=== PATIENT | male | born 1985 | race Caucasian/White ===

== ENCOUNTER 2018-08-31 22:05 | Observation (INO) | payer OTHER ==
[2018-08-31 22:41] LABS: Absolute Lymphocytes (CBC) 4.1 K/uL (0.7-4.9); Absolute Neutrophil 4.1 K/uL (1.8-8.0); Basophils % 0.7 % (0-1.3); Eosinophils % 2.3 % (0-4.4); Hematocrit 46.7 % (39.6-49.0); Lymphocytes % 43.3 % (15.3-44.8); MPV 10.6 fL (7.6-11.3); Monocytes % 10.4 % (3.3-12.3); RBC Red Blood Cell Count 5.16 M/uL (4.33-5.43)
[2018-08-31 22:45] LABS: Protime INR 0.99
[2018-08-31 22:58] LABS: Potassium 3.7 mmol/L (3.5-5.1)
--- NOTE | 2018-08-31 23:46 | ER ---
Nurse's Notes [facility] Name: Beltran Pena Age: 33 yrs Sex: Male : 1985 Arrival Date: 08/31/2018 Time: 22:19 Bed 6 Private MD: Diagnosis: Paresthesia of skin Presentation: 08/31 22:30 Presenting complaint: Patient states: Numbness to left side of face and tingling to lp1 left arm; Began at 2100 tonight; steady gait noted, denies any weakness. Transition of care: patient was not received from another setting of care. Onset of symptoms was August 31, 2018 at 21:00. Risk Assessment: Do you want to hurt yourself or someone else? Patient reports no desire to harm self or others. Initial Sepsis Screen: Does the patient meet any 2 criteria? No. Patient's initial sepsis screen is negative. Does the patient have a suspected source of infection? No. Patient's initial sepsis screen is negative. Care prior to arrival: None. 22:30 Method Of Arrival: Wheelchair lp1 22:30 Acuity: ANGELICA 2 lp1 22:36 No acute neurological deficit is noted. Pre-hospital glucose is not applicable to this lp1 patient. Triage Assessment: 22:25 The onset of the patients symptoms was August 31, 2018 at 21:00. General: Appears in ed1 no apparent distress. Behavior is calm, cooperative. Stroke Activation: Symptom onset < 3 hours Physician: Stroke Attending; Name: ; Notified At: ; Arrived At: Physician: Chief Stroke Resident; Name: ; Notified At: ; Arrived At: Physician: Stroke Resident; Name: ; Notified At: ; Arrived At: Physician: ED Attending; Name: Dr. Newton; Notified At: 22:26; Arrived At: Physician: ED Resident; Name: ; Notified At: ; Arrived At: Historical: - Allergies: 22:33 No Known Allergies; lp1 - Home Meds: 22:33 None [Active]; lp1 - PMHx: 22:33 None; lp1 - PSHx: 22:33 None; lp1 - Immunization history:: Adult Immunizations up to date. - Social history:: Smoking status: Patient/guardian denies using tobacco. - Ebola Screening: : No symptoms or risks identified at this time. Screenin:33 Abuse screen: Denies threats or abuse. Denies injuries from another. Nutritional lp1 screening: No deficits noted. Tuberculosis screening: No symptoms or risk factors identified. Fall Risk None identified. Assessment: 22:45 Patient has been NPO before screening. The patient is alert, and able to follow ed1 commands. The patient does not exhibit slurred or garbled speech. The patient is not exhibiting difficulty speaking. The patient does not exhibit difficulty understanding words. The patient is able to swallow own secretions with no drooling or need for suction. Patient tolerated one teaspoon of water. No drooling, immediate coughing, gurgling, or clearing of the throat was noted. The patient tolerated 90mL of water. No drooling, immediate coughing, gurgling, or clearing of the throat was noted. The patient passed the bedside swallow screening. Oral medications may be given as ordered. Contact Physician for further diet orders. Provider notified of bedside swallow screening results: Tip Newton MD. 22:58 General: Appears in no apparent distress. Behavior is calm, cooperative. Pain: Denies ed1 pain. Neuro: Level of Consciousness is awake, alert, obeys commands, Oriented to person, place, time, situation, Park Landscape Architect are equal bilaterally Moves all extremities. Full function Gait is steady, Speech is normal, Facial symmetry appears normal, Pupils are PERRLA, Intact Tingling in left jaw Numbness in left jaw Pt states numbness and tingling but sensation is equal bilaterally. Reports numbness in left jaw since 2100 Denies weakness blurred vision dizziness, difficulty swallowing, paresthesias headache photophobia diplopia. Cardiovascular: Denies chest pain, Heart tones S1 S2 present. Respiratory: Airway is patent Respiratory effort is even, unlabored, Respiratory pattern is regular, symmetrical, Breath sounds are clear bilaterally. GI: No signs and/or symptoms were reported involving the gastrointestinal system. : No signs and/or symptoms were reported regarding the genitourinary system. EENT: Oral mucosa is moist. 22:58 Derm: Skin is intact, is healthy with good turgor, Skin is dry, Skin is normal, Skin ed1 temperature is warm. Musculoskeletal: Circulation, motion, and sensation intact. Capillary refill < 3 seconds, in bilateral fingers. Range of motion: intact in all extremities. 23:58 Reassessment: Patient appears in no apparent distress at this time. No changes from ed1 previously documented assessment. Patient and/or family updated on plan of care and expected duration. Pain level reassessed. Patient is alert, oriented x 3, equal unlabored respirations, skin warm/dry/pink. Pt reports the tingling is remaining the same Patient denies pain at this time. 09/01 00:50 Reassessment: Patient appears in no apparent distress at this time. No changes from ed1 previously documented assessment. Patient and/or family updated on plan of care and expected duration. Pain level reassessed. Patient is alert, oriented x 3, equal unlabored respirations, skin warm/dry/pink. Patient denies pain at this time. Patient states symptoms have not improved. Neuro: Level of Consciousness is awake, alert, obeys commands, Oriented to person, place, time, situation, Park Landscape Architect are equal bilaterally Moves all extremities. Full function Gait is steady, Speech is normal, Facial symmetry appears normal, Pupils are PERRLA, Tingling in left jaw. 01:45 T-PA (Activase) Screening: Contraindications: Other: MD discretion. ed1 Vital Signs: 08/31 22:31 BP 144 / 85; Pulse 86; Resp 18; Temp 98.4(O); Pulse Ox 98% on R/A; Weight 122.47 kg; lp1 Height 5 ft. 11 in. (180.34 cm); Pain 0/10; 22:58 BP 134 / 85; Pulse 91; Resp 18; Pulse Ox 97% on R/A; Pain 0/10; ed1 23:58 BP 123 / 74; Pulse 71; Resp 18; Pulse Ox 97% on R/A; Pain 0/10; ed1 09/01 00:50 BP 126 / 71; Pulse 76; Resp 17; Temp 97.2(O); Pulse Ox 99% on R/A; Pain 0/10; ed1 08/31 22:31 Body Mass Index 37.66 (122.47 kg, 180.34 cm) lp1 NIH Stroke Scale Scores: 08/31 22:25 NIHSS Score: 0 ed1 23:40 NIHSS Score: 1 ED Course: 22:19 Patient arrived in ED. ed1 22:20 Tip Newton MD is Attending Physician. 22:28 Inserted saline lock: 20 gauge in right antecubital area, using aseptic technique. ed1 Blood collected. By Ailin Lyles RN. 22:[address] stretcher. lp1 22:30 EKG done, by ED staff, reviewed by Tip Newton MD. lp1 22:31 Triage completed. lp1 22:32 Arm band placed on. lp1 22:33 Patient has correct armband on for positive identification. Placed in gown. Bed in low lp1 position. gambling monitor on. Pulse ox on. NIBP on. 22:34 Angelina Sherwood RN is Primary Nurse. ed1 22:42 X-ray(s) taken. ed1 22:44 CT Stroke Brain w/o Contrast In Process Unspecified. EDMS 22:53 Stroke CXR 1 View In Process Unspecified. EDMS 23:45 Héctor Whittaker MD is Hospitalizing Provider. gs 02 00:50 No provider procedures requiring assistance completed. Patient admitted, IV remains in ed1 place. intact, No redness/swelling at site. 07:02 Primary Nurse role handed off by Angelina Sherwood RN ed1 07:29 Patient moved to MRI via wheelchair. lc 08:06 Patient moved back from MRI. lc Administered Medications: No medications were administered Point of Care Testing: Blood Glucose: 0204 22:26 Blood Glucose: 107 mg/dL; lp1 Ranges: Outcome: 23:46 Decision to Hospitalize by Provider. 02 00:50 Admitted to ER Hold. [facility]. ed1 Condition: stable Discharge instructions given to patient, Instructed on the need for admit, Demonstrated understanding of instructions. 08:39 Patient left the ED. hb NIH Stroke Scale - NIH Stroke Score Date: 08/31/2018 Time: 22:25 Total Score = 0 1a. Level of Consciousness (LOC) - 0(Alert) 1b. Level of Consciousness (LOC) (Year \T\ Age) - 0(Both) 1c. LOC Commands (Open \T\ Closes Eyes/Mine Equipment Design Engineer) - 0(Both) 2. Best Gaze (Lateral Gaze Paresis) - 0(Normal) 3. Visual Field Loss - 0(No visual loss) 4. Facial Palsy - 0(Normal) 5a. Left Arm: Motor (10-second hold) - 0(No drift) 5b. Right Arm: Motor (10-second hold) - 0(No drift) 6a. Left Leg: Motor (5-second hold - always test supine) - 0(No drift) 6b. Right Leg: Motor (5-second hold - always test supine) - 0(No drift) 7. Limb Ataxia (finger/nose \T\ heel/august - test with eyes open) - 0(Absent) 8. Sensory Loss (pinprick arms/legs/face) - 0(Normal) 9. Best Language: Aphasia (description/naming/reading) - 0(No aphasia) 10. Dysarthria (speech clarity - read or repeat words) - 0(Normal) 11. Extinction and Inattention (visual/tactile/auditory/spatial/personal) - 0(No abnormality) Initials: ed1 NIH Stroke Scale - NIH Stroke Score Date: 08/31/2018 Time: 23:40 Total Score = 1 1a. Level of Consciousness (LOC) - 0(Alert) 1b. Level of Consciousness (LOC) (Year \T\ Age) - 0(Both) 1c. LOC Commands (Open \T\ Closes Eyes/Mine Equipment Design Engineer) - 0(Both) 2. Best Gaze (Lateral Gaze Paresis) - 0(Normal) 3. Visual Field Loss - 0(No visual loss) 4. Facial Palsy - 0(Normal) 5a. Left Arm: Motor (10-second hold) - 0(No drift) 5b. Right Arm: Motor (10-second hold) - 0(No drift) 6a. Left Leg: Motor (5-second hold - always test supine) - 0(No drift) 6b. Right Leg: Motor (5-second hold - always test supine) - 0(No drift) 7. Limb Ataxia (finger/nose \T\ heel/august - test with eyes open) - 0(Absent) 8. Sensory Loss (pinprick arms/legs/face) - 1(Mild to moderate loss) 9. Best Language: Aphasia (description/naming/reading) - 0(No aphasia) 10. Dysarthria (speech clarity - read or repeat words) - 0(Normal) 11. Extinction and Inattention (visual/tactile/auditory/spatial/personal) - 0(No abnormality) Initials: gs Signatures: Dispatcher [employer] EDMS Pura Arias Erika RN RN ed1 Ramonita Singh RN RN lp1 Nichelle Granado RN RN Tip Newton MD MD gs Corrections: (The following items were deleted from the chart) 08/31 22:57 22:26 Inserted saline lock: 20 gauge in right antecubital area, using aseptic ed1 technique. Blood collected. By Ailin Lyles RN lp1
--- NOTE | 2018-08-31 23:47 | EDPHYS ---
Physician Documentation [facility] Name: Beltran Pena Age: 33 yrs Sex: Male : 1985 Arrival Date: 08/31/2018 Time: 22:19 Bed 6 Private MD: ED Physician Tip Newton HPI: 08/31 23:40 This 33 yrs old Male presents to ER via Wheelchair with complaints of gs numbness of face. 23:40 The patient's problem is reported as paresthesias, in left side of face. Onset: The gs symptoms/episode began/occurred at 21:00. Duration: The episode is continuous. Context: occurred at home, occurred while the patient was lying down. The symptoms are alleviated by nothing. The symptoms are aggravated by nothing. Associated signs and symptoms: Pertinent negatives: agitation, ataxia, combativeness, confusion, headache, palpitations, shortness of breath, weakness. Severity of symptoms: At their worst the symptoms were mild in the emergency department the symptoms are unchanged. The patient has not experienced similar symptoms in the past. Historical: - Allergies: 22:33 No Known Allergies; lp1 - Home Meds: 22:33 None [Active]; lp1 - PMHx: 22:33 None; lp1 - PSHx: 22:33 None; lp1 - Immunization history:: Adult Immunizations up to date. - Social history:: Smoking status: Patient/guardian denies using tobacco. - Ebola Screening: : No symptoms or risks identified at this time. ROS: 23:40 All other systems are negative. gs Exam: 23:40 Head/Face: Normocephalic, atraumatic. Eyes: Pupils equal round and reactive to light, gs extra-ocular motions intact. Lids and lashes normal. Conjunctiva and sclera are non-icteric and not injected. Cornea within normal limits. Periorbital areas with no swelling, redness, or edema. ENT: Nares patent. No nasal discharge, no septal abnormalities noted. Tympanic membranes are normal and external auditory canals are clear. Oropharynx with no redness, swelling, or masses, exudates, or evidence of obstruction, uvula midline. Mucous membranes moist. Neck: Trachea midline, no thyromegaly or masses palpated, and no cervical lymphadenopathy. Supple, full range of motion without nuchal rigidity, or vertebral point tenderness. No Meningismus. Chest/axilla: Normal chest wall appearance and motion. Nontender with no deformity. No lesions are appreciated. Cardiovascular: Regular rate and rhythm with a normal S1 and S2. No gallops, murmurs, or rubs. Normal PMI, no JVD. No pulse deficits. Respiratory: Lungs have equal breath sounds bilaterally, clear to auscultation and percussion. No rales, rhonchi or wheezes noted. No increased work of breathing, no retractions or nasal flaring. Abdomen/GI: Soft, non-tender, with normal bowel sounds. No distension or tympany. No guarding or rebound. No evidence of tenderness throughout. Back: No spinal tenderness. No costovertebral tenderness. Full range of motion. Skin: Warm, dry with normal turgor. Normal color with no rashes, no lesions, and no evidence of cellulitis. MS/ Extremity: Pulses equal, no cyanosis. Neurovascular intact. Full, normal range of motion. 23:40 Neuro: Orientation: is normal, Mentation: is normal, Memory: is normal, Cranial nerves: CN II- XII are normal as tested, Cerebellar function: normal finger to nose testing, Motor: moves all fours, strength is 5/5 in all extremities, Sensation: Deep tendon reflexes are normal. Vital Signs: 22:31 BP 144 / 85; Pulse 86; Resp 18; Temp 98.4(O); Pulse Ox 98% on R/A; Weight 122.47 kg; lp1 Height 5 ft. 11 in. (180.34 cm); Pain 0/10; 22:58 BP 134 / 85; Pulse 91; Resp 18; Pulse Ox 97% on R/A; Pain 0/10; ed1 23:58 BP 123 / 74; Pulse 71; Resp 18; Pulse Ox 97% on R/A; Pain 0/10; ed1 09/01 00:50 BP 126 / 71; Pulse 76; Resp 17; Temp 97.2(O); Pulse Ox 99% on R/A; Pain 0/10; ed1 04 22:31 Body Mass Index 37.66 (122.47 kg, 180.34 cm) lp1 NIH Stroke Scale Scores: 08/31 22:25 NIHSS Score: 0 ed1 23:40 NIHSS Score: 1 gs MDM: 22:36 Patient medically screened. gs 23:40 Differential diagnosis: CVA, TIA, metabolic disorder, drug effects. Data reviewed: gs vital signs, nurses notes. Response to treatment: the patient's symptoms have markedly improved after treatment, and as a result, I will admit patient. ED course: no tpa nihss 1, discussed risked benefits chose to hold tpa. 08/31 22:35 Order name: Basic Metabolic Panel; Complete Time: 23:37 ed1 08/31 22:35 Order name: CBC with Diff; Complete Time: 23:37 ed1 08/31 22:35 Order name: Protime (+inr); Complete Time: 23:37 ed1 08/31 22:35 Order name: Ptt, Activated; Complete Time: 23:37 ed1 08/31 22:35 Order name: CT Stroke Brain w/o Contrast ed1 08/31 22:35 Order name: Stroke CXR 1 View ed1 08/31 22:35 Order name: EKG; Complete Time: 22:36 ed1 08/31 22:35 Order name: Accucheck; Complete Time: 22:37 ed1 08/31 22:35 Order name: Cardiac monitoring; Complete Time: 22:37 ed1 08/31 22:35 Order name: EKG - Nurse/Tech; Complete Time: 22:37 ed1 08/31 22:35 Order name: IV Saline Lock; Complete Time: 22:37 ed1 08/31 22:35 Order name: Labs collected and sent; Complete Time: 22:37 ed1 08/31 22:35 Order name: NPO; Complete Time: 22:37 ed1 09/01 08:31 Order name: RAD EDAZ 08/31 22:35 Order name: O2 Per Protocol; Complete Time: 22:38 ed1 08/31 22:35 Order name: O2 Sat Monitoring; Complete Time: 22:38 ed1 08/31 22:35 Order name: Stroke Swallow Screen; Complete Time: 23:02 ed1 Administered Medications: No medications were administered Point of Care Testing: Blood Glucose: 22:26 Blood Glucose: 107 mg/dL; lp1 Ranges: Critical Glucose Levels:Adult <50 mg/dl or >400 mg/dl <40 mg/dl or >180 mg/dl Disposition: 08/31/18 23:46 Hospitalization ordered by Héctor Whittaker for Observation. Preliminary diagnosis is Paresthesia of skin. - Bed requested for Telemetry/MedSurg (observation). - Status is Observation. hb - Condition is Stable. - Problem is new. - Symptoms have improved. UTI on Admission? No NIH Stroke Scale - NIH Stroke Score Date: 08/31/2018 Time: 22:25 Total Score = 0 1a. Level of Consciousness (LOC) - 0(Alert) 1b. Level of Consciousness (LOC) (Year \T\ Age) - 0(Both) 1c. LOC Commands (Open \T\ Closes Eyes/Stitcher Hand) - 0(Both) 2. Best Gaze (Lateral Gaze Paresis) - 0(Normal) 3. Visual Field Loss - 0(No visual loss) 4. Facial Palsy - 0(Normal) 5a. Left Arm: Motor (10-second hold) - 0(No drift) 5b. Right Arm: Motor (10-second hold) - 0(No drift) 6a. Left Leg: Motor (5-second hold - always test supine) - 0(No drift) 6b. Right Leg: Motor (5-second hold - always test supine) - 0(No drift) 7. Limb Ataxia (finger/nose \T\ heel/august - test with eyes open) - 0(Absent) 8. Sensory Loss (pinprick arms/legs/face) - 0(Normal) 9. Best Language: Aphasia (description/naming/reading) - 0(No aphasia) 10. Dysarthria (speech clarity - read or repeat words) - 0(Normal) 11. Extinction and Inattention (visual/tactile/auditory/spatial/personal) - 0(No abnormality) Initials: ed1 NIH Stroke Scale - NIH Stroke Score Date: 08/31/2018 Time: 23:40 Total Score = 1 1a. Level of Consciousness (LOC) - 0(Alert) 1b. Level of Consciousness (LOC) (Year \T\ Age) - 0(Both) 1c. LOC Commands (Open \T\ Closes Eyes/Stitcher Hand) - 0(Both) 2. Best Gaze (Lateral Gaze Paresis) - 0(Normal) 3. Visual Field Loss - 0(No visual loss) 4. Facial Palsy - 0(Normal) 5a. Left Arm: Motor (10-second hold) - 0(No drift) 5b. Right Arm: Motor (10-second hold) - 0(No drift) 6a. Left Leg: Motor (5-second hold - always test supine) - 0(No drift) 6b. Right Leg: Motor (5-second hold - always test supine) - 0(No drift) 7. Limb Ataxia (finger/nose \T\ heel/august - test with eyes open) - 0(Absent) 8. Sensory Loss (pinprick arms/legs/face) - 1(Mild to moderate loss) 9. Best Language: Aphasia (description/naming/reading) - 0(No aphasia) 10. Dysarthria (speech clarity - read or repeat words) - 0(Normal) 11. Extinction and Inattention (visual/tactile/auditory/spatial/personal) - 0(No abnormality) Initials: Signatures: Dispatcher [employer] EDMS Alayna Darden RN RN Tracey Alonzo, RN RN bb Angelina Sherwood RN RN ed1 Ramonita Singh RN RN lp1 Nichelle Granado RN RANGEL Tip Newton MD MD Corrections: (The following items were deleted from the chart) 09/01 01:12 02 23:46 Hospitalization Ordered by Héctor Whittaker MD for Observation. bb Preliminary diagnosis is Paresthesia of skin. Bed requested for Telemetry/MedSurg (observation). Status is Observation. Condition is Stable. Problem is new. Symptoms have improved. UTI on Admission? No. gs 09/01 05:31 01:12 08/31/2018 23:46 Hospitalization Ordered by Héctor Whittaker MD for mw Observation. Preliminary diagnosis is Paresthesia of skin. Bed requested for [facility] ER HOLD. Status is Observation. Condition is Stable. Problem is new. Symptoms have improved. UTI on Admission? No. bb 08:39 05:31 08/31/2018 23:46 Hospitalization Ordered by Héctor Whittaker MD for hb Observation. Preliminary diagnosis is Paresthesia of skin. Bed requested for Telemetry/MedSurg (observation). Status is Observation. Condition is Stable. Problem is new. Symptoms have improved. UTI on Admission? No. mw
[2018-09-01] MEDS ORDERED: ACETAMINOPHEN 500 MG TAB PO PRN (01:22)
[2018-09-01 02:00] VITALS: BMI 37.6
--- NOTE | 2018-09-01 05:53 | P.HP ---
Certification for Inpatient Patient admitted to: Observation With expected LOS: <2 Midnights Practitioner: I am a practitioner with admitting privileges, knowledge of patient current condition, hospital course, and medical plan of care. Services: Services provided to patient in accordance with Admission requirements found in Title 42 Section 412.3 of the Code of Federal Regulations Patient History Date of Service: 09/01/18 Reason for admission: left side face tingling History of Present Illness: Mr Pena is a 33 years old male with pretty benign past medical history, who came to ED complaining of left side of the face tingling started last night about 2100. He denied any tingling, numbness or weakness in other part of his body. No history of fever, chills, blurred vision or headache. At my encounter he was still complaining of his symptoms, and also he states that feels like water bubbles in his left ear. BP was 144/85, lab work unremarkable. CT head shows no acute abnormalities. Bilateral ear exam was remarkable for left tympanic membrane erythema with possible perforation. Allergies No Known Allergies Allergy (Unverified 09/01/18 01:22) Home medications list reviewed: Yes Home Medications: NK [No Home Meds] 09/01/18 - Past Medical/Surgical History Has patient received pneumonia vaccine in the past: No Diabetic: No Past Medical History: Reviewed- Non-Contributory Past Surgical History: Reviewed- Non-Contributory - Family History Family History: Reviewed- Non-Contributory - Family History Mother -: Diabetes - Social History Smoking Status: Never smoker Alcohol use: Yes CD- Drugs: No Caffeine use: Yes Place of Residence: Home Review of Systems 10-point ROS is otherwise unremarkable Physical Examination - Physical Exam General: Alert, In no apparent distress HEENT: Atraumatic, PERRLA, Mucous membr. moist/pink, Other (left tympanic membrane erythema with possible perforation.), EOMI, Sclerae nonicteric Neck: Supple, 2+ carotid pulse no bruit, No LAD, Without JVD or thyroid abnormality Respiratory: Clear to auscultation bilaterally, Normal air movement Cardiovascular: Regular rate/rhythm, Normal S1 S2 Gastrointestinal: Normal bowel sounds, No tenderness Musculoskeletal: No tenderness Integumentary: No rashes Neurological: Normal speech, Normal strength at 5/5 x4 extr, Normal tone, Normal affect Lymphatics: No axilla or inguinal lymphadenopathy - Studies Laboratory Data (last 24 hrs) 08/31/18 22:28: PT 11.7, INR 0.99, APTT 32.7 08/31/18 22:28: WBC 9.4, Hgb 16.1, Hct 46.7, Plt Count 227 08/31/18 22:28: Sodium 139, Potassium 3.7, BUN 15, Creatinine 1.19, Glucose 104 Assessment and Plan - Problems (Diagnosis) (1) Tingling of left arm and left side of face Current Visit: Yes Status: Acute (2) Obesity Current Visit: Yes Status: Acute Qualifiers: Obesity type: due to excess calories Obesity classification: adult class 2 (BMI 35 - 39.9) Serious obesity comorbidity presence: without serious comorbidity Body mass index: unspecified BMI Qualified Code(s): E66.09 - Other obesity due to excess calories - Plan Will admit the patient due to left facial tingling. Differential diagnosis include TIA/CVA and also left ear inflammatory process. He has no fever, WBC are WNL. Will order a brain MRI. Consult Dr Sullivan for evaluation and recommendations. - Advance Directives Does patient have a Living Will: No Does patient have a Durable POA for Healthcare: No - Code Status/Comfort Care Code Status Assessed: Yes Code Status: Full Code
--- NOTE | 2018-09-01 07:39 | EKG ---
Test Date: 2018-07-31 Test Time: 22:31:33 Rn Ante Partum: CASI MEASUREMENT RESULTS: Intervals: Rate: 79 GA: 156 QRSD: 120 QT: 384 QTc: 440 [place]: P: 49 GA: 156 QRS: 38 T: 12 INTERPRETIVE STATEMENTS: Poor data quality, interpretation may be adversely affected Normal sinus rhythm Right bundle branch block Abnormal ECG No previous ECG available for comparison Electronically Signed On 09-01-18 07:29:59 FIELD SALES TRAINER by Jimmy Hope
--- NOTE | 2018-09-01 08:25 | RAD REPORT ---
EXAM DESCRIPTION: Cinthya Single View08/31/2018 10:52 pm CLINICAL HISTORY: Chest pain COMPARISON: none FINDINGS: The lungs appear clear of acute infiltrate. The heart is normal size IMPRESSION: No acute abnormalities displayed
--- NOTE | 2018-09-01 08:26 | RAD REPORT ---
EXAM DESCRIPTION: Cinthya Husain (2 Views)09/01/2018 8:21 am CLINICAL HISTORY: Chest pain COMPARISON: August 31 FINDINGS: The lungs appear clear of acute infiltrate. The heart is normal size IMPRESSION: No acute abnormalities displayed
[2018-09-01 08:50] VITALS: O2SAT 99
--- NOTE | 2018-09-01 08:58 | RAD REPORT ---
EXAM DESCRIPTION: MRI - Brain W/Wo Cont - 09/01/2018 7:46 am CLINICAL HISTORY: Left-sided numbness COMPARISON: August 31, [address] TECHNIQUE: Axial, sagittal, and coronal magnetic images of the brain were obtained. 20 cc MultiHance administered intravenously FINDINGS: No abnormal signal within the brain is noted. The ventricles are normal in caliber. Diffusion-weighted sequences do not demonstrate evidence of an acute infarction. No abnormal enhancement within the brain is seen. An extra-axial fluid collection is not noted. Fluid within the sinuses/mastoids is not seen IMPRESSION: Unremarkable brain MRI.
[2018-09-01] MEDS ORDERED: ASPIRIN EC 81 MG TAB PO SCH (09:00)
[2018-09-01] MEDS ORDERED: ENOXAPARIN 40 MG/0.4 ML SQ SCH (09:00)
[2018-09-01] MEDS ORDERED: METHYLPREDNISOLONE 40 MG INJ IV ONE ×2 (17:07→18:00)
[2018-09-01 17:40] LABS: HDL Cholesterol 42 mg/dL (40-60); LDL, Direct 110 mg/dL (100-129)
[2018-09-01 17:46] VITALS: BP 127/68; TEMP 98.2
--- NOTE | 2018-09-01 18:13 | ECHO ---
HEIGHT: 5 ft 11 in WEIGHT: 270 lb 0 oz DATE OF STUDY: 09/01/[address]: Héctor Bryson MD 2-DIMENSIONAL: YES M.MODE: YES DOPPLER: YES COLOR FLOW: YES TDS: PORTABLE: DEFINITY: BUBBLE STUDY: DIAGNOSIS: STROKE CARDIAC HISTORY: CATHERIZATION: NO SURGERY: NO PROSTHETIC VALVE: NO PACEMAKER: NO MEASUREMENTS (cm) DIASTOLIC (NORMALS) SYSTOLIC (NORMALS) IVSd 1.1 (0.6-1.2) LA Diam 3.7 (1.9-4.0) LVEF 63% LVIDd 4.2 (3.5-5.7) LVIDs 2.8 (2.0-3.5) %FS 34% LVPWd 1.1 (0.6-1.2) Ao Diam 2.8 (2.0-3.7) 2 DIMENSIONAL ASSESSMENT: RIGHT ATRIUM: NORMAL LEFT ATRIUM: NORMAL RIGHT VENTRICLE: NORMAL LEFT VENTRICLE: NORMAL TRICUSPID VALVE: NORMAL MITRAL VALVE: NORMAL PULMONIC VALVE: NORMAL AORTIC VALVE: NORMAL PERICARDIAL EFFUSION: NONE AORTIC ROOT: NORMAL LEFT VENTRICULAR WALL MOTION: NORMAL DOPPLER/COLOR FLOW: TRACE MITRAL REGURGITATION AND TRICUSPID REGURGITATION. NORMAL RIGHT VENTRICULAR SYSTOLIC PRESSURE. COMMENTS: NORMAL TWO DIMENSIONAL ECHOCARDIOGRAM. TRACE MITRAL REGURGITATION AND TRICUSPID REGURGITATION. TECHNOLOGIST: JEAN-PIERRE JACKSON
[2018-09-01] MEDS ORDERED: ATORVASTATIN 20 MG TAB PO SCH (21:00)
--- NOTE | 2018-09-02 11:11 | RAD REPORT ---
EXAM DESCRIPTION: CT - Ct Stroke Brain Wo Cont CLINICAL HISTORY: 33 years Male NUMBNESS. TECHNIQUE: Contiguous axial images of the brain were obtained without the administration of intraven ous contrast. This exam was performed according to our departmental dose-optimization program, which includes automated exposure control, adjustment of the mA and/or kV according to patient size and/or less of iterative reconstruction technique. FINDINGS: Brain: No acute intracranial hemorrhage. No acute territorial infarct. No extra-axial meera ection. No mass effect or herniation. Ventricles: Within normal limits in size. Globes and orbits: No acute abnormality. Bones: No acute osseous finding. Paranasal sinuses: Paranasal sinuses are clear. Mastoid air cells: Well pneumatized. Soft tissues: Within normal limits. Store Assistant view shows no additional significant finding. IMPRESSION: No acute intracranial abnormality. Electronically signed by Saji Celis DO 08/31/2018 10:51 PM CREATIVE PRODUCER Due to temporary technical issues with the [employer] reporting system, reports are being signed by the in house radiologist as a courtesy to ensure prompt reporting. The interpreting radiologist is mari olvera responsible for the content of the report. ADDENDUM: Findings were discussed by Dr. Celis via telephone with Tip Newton on 08/31/2018 10:54 PM CREATIVE PRODUCER Electronically signed by: Saji Celis DO 08/31/2018 10:54 PM CREATIVE PRODUCER Due to temporary technical issues with the [employer] reporting system, reports are being signed by the in house radiologist as a courtesy to ensure prompt reporting. The interpreting radiologist is mari olvera responsible for the content of the report.
--- NOTE | 2018-09-02 16:56 | DS ---
Date of Discharge: 09/01/2018 Consultants: Dr. Sullivan, ENT and Dr. Mayer, Neurology. Discharge Diagnoses: 1.Tingling of the left side of the face and arm. 2.Obesity. BMI is 37.7. Hospital Course: The patient is a 33-year-old male with no significant past medical history, comes i n with numbness and tingling on the left side of his face and arm. The patient denies any trauma. D id report some fullness in his ears. The patient is not a diabetic or at least has not been diagnose d with diabetes. The patient has not seen a primary care physician, however, scheduled to see one on Friday of this week. The patient was admitted to the hospital for further evaluation. MRI of the b rain was negative and CVA was ruled out. I spoke with Dr. Mayer with Neurology. He recommended o utpatient followup. CT scan of the head was also negative. Chest x-ray did not show any acute robin es. The patient also spoke with Dr. Sullivan with ENT, who recommended outpatient followup. She did re-review the scans. She did not feel that there was any surgical intervention at this time. There was no episcopalian bone abnormality or sinus abnormalities. The patient was given IV steroids for possibl e neuropathy, doubt trigeminal neuralgia as he does not have any pain. The patient's symptoms improv ed. He was cleared for discharge and was sent home in good condition. Medications: As per medication reconciliation list. Diet: Calorie-restricted diet. Activity: As tolerated. Follow up with PCP as scheduled on Friday. Followup with ENT, Dr. Sullivan in 1 week. Follow up with Neurology, Dr. Mayer in 2 weeks. Return to ER for worsening condition. Physical Examination: General: Awake, alert, oriented x3, not in any acute distress. Obese male. BMI 37.7. CV: S1, S2. Regular rate and rhythm. Peripheral pulses present. Respiratory: Moving air well bilaterally. No wheezing or stridor. Gastrointestinal: Abdomen is soft, nontender, nondistended. Positive bowel sounds. Extremities: No clubbing, cyanosis, or edema. Neuro: Cranial nerves 2 to 12 intact grossly. No focal neurological deficit. Speech is normal. Se nsation is decreased to light touch on the left side of the face. SA/MODL Voice ID: [id number] Report ID: [id number]
== END 2018-09-01 18:39 | disposition home or self-care (01) ==
LOC: ER 22:05 → ERHOLD 09-01 01:08 → 4TH 09-01 07:39
PROVIDERS: ADMIT Internal Medicine; ATTEND Internal Medicine
DX: R20.2 Paresthesia of skin (principal); E66.9 Obesity, unspecified; Z68.37 Body mass index [BMI] 37.0-37.9, adult
CPT/HCPCS: 36415; 70450; 70553; 71045; 71046; 80048; 80061; 82962; 83036; 85025; 85610; 85730; 92610; 93005; 93306; 97162; 99285; A9577; G0378; J1650; J2920